=== PATIENT | female | born 1955 | race Caucasian/White ===

== ENCOUNTER 2021-07-08 07:54 | Inpatient (IN) | payer MEDICARE, OTHER ==
[~2021-07-08] VITALS: Ht 165.1 cm; Wt 49.9 kg
[~2021-07-08 07:54] MED LIST: CALC-896 PO
--- NOTE | 2021-07-08 08:03 | NUR ---
CROW FRM OUTSIDE HER HOME ACTING BIZZARE. NOTED SEIZURE LIKE ACTIVITY BY PARAMEDICS RESEARCH AND DEVELOPMENT TECHNICIAN. BG 146. THE PATIENT IS NOTED TO BE ALERT AND ORIENTED X1. IN ROOM AIR AND DENIES SOB. RESPIRATION REGULAR AND UNLABORED. DENIES PAIN. ATTACHED TO THE MONITOR. SITTER AT THE BEDSIDE. WILL CONTINUE TO MONITOR THE PATIENT.
[2021-07-08 08:22] LABS: BASOPHILS # (AUTO) 0.1 K/uL (0.0-0.2); BASOPHILS % (AUTO) 1.1 % (0.0-2.0); EOSINOPHILS % (AUTO) 0.9 % (0.0-6.0); HEMATOCRIT 36 % (33-45); HEMOGLOBIN 12.1 g/dL (11.5-14.8); LYMPHOCYTES # (AUTO) 1.8 K/uL (0.8-4.8); LYMPHOCYTES % (AUTO) 21.4 % (20.0-44.0); MEAN CORPUSCULAR HGB CONC 34 g/dl (31.0-36.0); MEAN CORPUSCULAR VOLUME 91 fL (82-100); MONOCYTES # (AUTO) 0.5 K/uL (0.1-1.30); MONOCYTES % (AUTO) 6.2 % (2.0-12.0); NEUTROPHILS % (AUTO) 70.4 % (43.0-81.0); PLATELET COUNT (AUTO) 218 K/uL (150-450); RED BLOOD CELL COUNT(AUTO) 3.91 MIL/uL (4.0-5.2); WHITE BLOOD COUNT (AUTO) 8.5 K/uL (4.3-11.0)
--- NOTE | 2021-07-08 08:32 | NUR ---
URINE COLLECTED AND SENT TO THE LAB
[2021-07-08 08:36] LABS: BILIRUBIN,URINE Negative (NEGATIVE); COLOR,URINE YELLOW (YELLOW); LEUKOCYTE ESTERASE ,URINE Negative (NEGATIVE); NITRITE, URINE Negative (NEGATIVE); PH,URINE 5.5 (5.0-8.0); PROTEIN,URINE 100 mg/dl (NEGATIVE); UGLUCOSE Negative (NEGATIVE); UROBILINOGEN,URINE 0.2 EU/dL (0.2)
[2021-07-08 08:45] LABS: ALANINE AMINOTRANSFERASE 18 U/L (12-78); ALBUMIN 3.6 g/dL (3.4-5.0); ALKALINE PHOSPHATASE 107 U/L (46-116); ASPARTATE AMINOTRANSFERASE 24 U/L (15-37); BILIRUBIN,DIRECT 0.2 mg/dL (0.0-0.2); BILIRUBIN,TOTAL 1.2 mg/dL (0.2-1.0); CALCIUM, SERUM 8.6 mg/dL (8.5-10.1); CARBON DIOXIDE 25 mmol/L (21-32); CHLORIDE 106 mmol/L (98-107); GLUCOSE 162 mg/dL (74-106); POTASSIUM 3.6 mmol/L (3.5-5.1); SODIUM SERUM 140 mmol/L (136-145); TOTAL PROTEIN, SERUM 6.8 g/dL (6.4-8.2); UREA NITROGEN, BLOOD 13 mg/dL (7-18)
[2021-07-08 08:47] LABS: ACETAMINOPHEN < 10 ug/ml (10-30); ALCOHOL, BLOOD < 3 mg/dL (0-0)
[2021-07-08 09:17] LABS: BACTERIA,URINE Few /HPF (None Seen); RBC,URINE 0-3 /HPF (0-2); SQUAMOUS EPITHELIAL CELL,UR Rare /HPF (None Seen); WBC,URINE 0-2 /HPF (0-3)
[2021-07-08] MEDS ORDERED: OLANZAPINE 5 MG TABLET ONE (11:29)
[2021-07-08] MEDS ORDERED: OLANZAPINE 5 MG TABLET PO ONE (11:30)
[2021-07-08] MEDS ORDERED: CLON1TAB12 PO (12:34)
--- NOTE | 2021-07-08 15:45 | NUR ---
NO AVAILABLE BEDS AT [facility]
--- NOTE | 2021-07-08 16:01 | NUR ---
218-1 AFTER 1814
--- NOTE | 2021-07-08 18:06 | NUR ---
REPORT GIVEN TO NURSE BHAKTI
--- NOTE | 2021-07-08 18:50 | NUR ---
THE PATIENT IS TRANSFERED TO GPS UNIT IN STABLE CONDITION AND PER POLICY.
[2021-07-08 19:55] VITALS: BP 115/64
[2021-07-08] MEDS ORDERED: TEMAZEPAM 7.5 MG CAPSULE PO PRN (20:00)
[2021-07-08] MEDS ORDERED: MAG HYDROX/AL HYDROX/SIMETH 30 ML UDC PO PRN ×2 (20:00)
[2021-07-08] MEDS ORDERED: BLOOD SUGAR DIAGNOSTIC 1 EACH STRIP IN ONE ×2 (20:00)
[2021-07-08] MEDS ORDERED: LORAZEPAM 0.5 MG TABLET PO PRN (20:00)
[2021-07-08] MEDS ORDERED: ACETAMINOPHEN 325 MG TABLET PO PRN ×2 (20:00)
[2021-07-08] MEDS ORDERED: MAGNESIUM HYDROXIDE 30 ML UDC PO PRN ×2 (20:00)
[2021-07-08 20:18] VITALS: BP 115/64
--- NOTE | 2021-07-08 20:33 | NUR ---
RN NOTE: FEVER PATIENT'S BODY TEMPERATURE NOTED TO BE 100.4 F, PATIENT IS SHIVERING AND RESTLESS. REMOVED EXTRA BLANKETS/CLOTHING/SOCKS. OFFERED PO FLUIDS TOLERATED. PRN TYLENOL 650 MG PO ADMINISTERED. WILL CONTINUE TO MONITOR CLOSELY FOR ANY CHANGE OF CONDITION.
--- NOTE | 2021-07-08 21:15 | NUR ---
RN NOTE PATIENT'S BODY TEMPERATURE IS 99.3F ORAL AT THIS TIME. TYLENOL HAS BEEN EFFECTIVE.
--- NOTE | 2021-07-08 21:25 | NUR ---
RN NOTE: PATIENT WAS ABLE TO PROVIDE HER FRIEND DERRICK'S NUMBER & PATIENT KEPT REQUESTING THE NURSE TO CALL DERRICK AND FIND OUT IF SHE IS ALIVE. NURSE CALLED [phone] (PHONE NUMBER PROVIDED BY THE PATIENT) PER PATIENT'S REQUEST AND SPOKE TO DERRICK. DERRICK STATED THAT SHE IS DOING FINE, SHE IS RELIEVED TO HEAR THAT BRENT IS AT THE HOSPITAL AND WILL CALL BRENT TOMORROW. GPS UNIT NUMBER & PATIENT'S ROOM NUMBER WAS PROVIDED TO DERRICK. DERRICK'S MESSAGE WAS GIVEN TO THE PATIENT WELL AND PATIENT DID CALM DOWN AFTER THAT.
--- NOTE | 2021-07-08 22:30 | NUR ---
RN NOTE PATIENT'S BODY TEMPERATURE IS 98.7F ORAL AT THIS TIME. OFFERED PO FLUIDS TOLERATED. WILL CONTINUE TO MONITOR THE PATIENT CLOSELY FOR ANY CHANGE OF CONDITION.
--- NOTE | 2021-07-08 22:45 | NUR ---
GPS TRAFFIC II MANAGER NOTE PATIENT ARRIVED TO GPS UNIT AT 1905 VIA GURNEY WITH NURSES FROM [facility], ER. PATIENT ADMITTED ON A 5150 HOLD FOR GD. PER 5150 HOLD, PATIENT IS DISORGANIZED, RAMBLING, HYPERVERBAL, DELUSIONAL AND RELIGIOUSLY PREOCCUPIED. PATIENT STATED," MY ROOMMATE IS , SHE IS A SAINT LIKE DANIAL URBINA. DANIAL IS PUNISHING ME, I NEED A MARBLE CLEANER TO COME AND BLESS ME. I DON'T KNOW WHAT HAD HAPPENED TO ME BUT I HAVE A SEIZURE." PATIENT IS CONFUSED, NO VIABLE PLAN FOR SELF CARE, BIZARRE, HISTORY OF SCHIZOAFFECTIVE DISORDER MIXED WITH PSYCHOTIC FEATURE. UPON FACE TO FACE ASSESSMENT, PATIENT IS A & O X 1-2, CONFUSED, FORGETFUL, RESTLESS, ANXIOUS, HYPERVERBAL, EMOTIONAL, CRYING, DISORGANIZED, PREOCCUPIED, DELUSIONAL, PARANOID, STATED," MY FRIEND DERRICK IS , SHE LAST NIGHT, I KEPT POUNDING ON HER ROOM DOOR, SHE DIDN'T OPEN. I AM A SINNER, DANIAL WILL PUNISH ME, IS DANIAL HERE ?" REASSURANCE PROVIDED. PATIENT IS A POOR HISTORIAN. PATIENT HAS NO S/S OF PAIN. PATIENT IS DISPLAYING NO S/S OF APPARENT DISTRESS OR SOB. ON ROOM AIR. PATIENT DENIES SI/HI AT THIS TIME. AMBULATORY, UNSTEADY GAIT AT TIMES. FALL RISK. NEEDS 1 PERSON ASSISTANCE AT ALL TIMES WITH ADL CARE & NEEDS FREQUENT REDIRECTIONS. PATIENT REFUSED TO SIGNS ANY PAPER WORK. PATIENT ADVISED OF HOLD AND PATIENT RIGHTS BOOKLET GIVEN. PATIENT IS UNDER THE PSYCHIATRIC CARE OF DR. GARIBAY AND THE MEDICAL CARE OF SUKUMAR MCKOY. PATIENT BELONGINGS WERE INVENTORIED AND CHECKED FOR CONTRABAND. ALL CONTRABAND REMOVED AND STORED IN PATIENT LOCKER. SKIN ASSESSMENT DONE, PHOTOS PLACED IN THE CHART. NO MEDS TO BE RECONCILED AT THIS TIME. UNABLE TO OBTAIN COVID AND PNEUMOCOCCAL VACCINE INFORMATION DUE TO PATIENT'S CURRENT MENTAL STATUS. PATIENT'S BODY TEMPERATURE WAS 100.4F UPON ADMISSION, PRN TYLENOL GIVEN & EFFECTIVE. PATIENT ORIENTATED TO ROOM, FLOOR, AND STAFF. PATIENT EDUCATED ON THE USE OF THE CALL FINLEY. PATIENT BED SIDE RAILS ARE UP X 2 FOR SAFETY. PATIENT BED IS LOCKED, LOW, BED ALARM ON FOR SAFETY. I WILL CONTINUE TO MONITOR THIS PATIENT Q 15 MIN WITH THE HELP OF STAFF TO MAINTAIN SAFETY.
--- NOTE | 2021-07-08 23:48 | NUR ---
RN NOTE PATIENT IS SLEEPING COMFORTABLY AT THIS TIME. NO ACUTE CHANGES NOTED. WILL CONTINUE TO MONITOR FOR ANY SAMANTHA.
[2021-07-09] MEDS: LORAZEPAM 0.5 MG TABLET PO PRN ×2 (06:41→22:11)
--- NOTE | 2021-07-09 06:42 | NUR ---
RN NOTE: ANXIETY PATIENT VERBALIZED FEELING RESTLESS, ANXIOUS & NOTED TO BE HYPERVERBAL/RESTLESS. PATIENT REQUESTED FOR MEDICINE TO HELP HER CALM DOWN. PRN ATIVAN 1 MG PO ADMINISTERED. WILL ENDORSE TO AM RN FOR CONTINUITY OF CARE.
[2021-07-09 07:13] LABS: CHOLESTEROL 159 mg/dL (<200); HDL CHOLESTEROL 57 mg/dL (40-60); LDL 89 mg/dL (0-99); TRIGLYCERIDES 81 mg/dL (30-150)
[2021-07-09 07:21] LABS: ALBUMIN 3.2 g/dL (3.4-5.0); BILIRUBIN,TOTAL 1.9 mg/dL (0.2-1.0); CALCIUM, SERUM 8.3 mg/dL (8.5-10.1); CREATININE 0.9 mg/dL (0.6-1.3); POTASSIUM 3.5 mmol/L (3.5-5.1); TOTAL PROTEIN, SERUM 6.2 g/dL (6.4-8.2)
[2021-07-09 08:00] VITALS: BP 119/62
[2021-07-09] MEDS: OLANZAPINE ZYDIS 5 MG TAB.RAPDIS PO SCH ×3 (09:00→22:00)
--- NOTE | 2021-07-09 11:45 | NUR ---
GPS/RN PT REFUSED ZYPREXA PO OFFERED X3. PT STATES : "I DO NOT NEED THAT, I ALREADY TOOK LORAZEPAM"
[2021-07-09 16:00] VITALS: BP 119/58
[2021-07-09 20:06] VITALS: BP 125/65
--- NOTE | 2021-07-09 22:11 | NUR ---
GPS RN NOTE - MEDS OFFERED OLANZAPINE X3 TO PT AND EDUCATED THE IMPORTANCE OF TAKING MED. PT STRONGLY REFUSED. PT REQUESTED FOR ATIVAN; ADMINISTERED ATIVAN 1MG ORDERED.
--- NOTE | 2021-07-10 06:29 | NUR ---
GPS RN NOTE PT A/OX1-2. TOLERATING R/A WELL. THROUGHOUT NIGHT, PT SLEPT WELL AND PT SLEEPING IN BED RIGHT NOW. DENIES PAIN OR DISCOMFORT. ALL NEEDS MET AT THIS TIME. SAFETY MEASURES IN PLACE. PT IN STABLE CONDITION, WILL ENDORSE PLAN OF CARE TO ONCOMING MORNING RN.
--- NOTE | 2021-07-10 07:30 | NUR ---
PT RECEIVED RESTING COMFORTABLE IN BED. NO S/S OR C/O PAIN OR DISTRESS NOTED. SIDE RAILS UP X2, CALL LIGHT LEFT WITHIN REACH. WILL CONTINUE PLAN OF CARE.
[2021-07-10 08:00] VITALS: BP 122/63
[2021-07-10] MEDS: OLANZAPINE ZYDIS 5 MG TAB.RAPDIS PO SCH ×2 (09:06→21:21)
--- NOTE | 2021-07-10 10:13 | NUR ---
BRIGITTE Initial Discharge Plan: Patient currently lives at home located at [address] [place] [address]. Patient lives with roommate Sana ([phone]). Patient would want to return back home upon discharge. BRIGITTE will work with the MD and treatment team to help coordinate appropriate discharge.
--- NOTE | 2021-07-10 10:26 | NUR ---
SW Note: Patient does not want staff to contact her roommate Sana ([phone]) and stated she is aware of pt's hospitalization and is aware that pt will return back home when stable.
--- NOTE | 2021-07-10 10:31 | NUR ---
Treatment Plan: Pt was very paranoid and anxious. Did not want to sign.
[2021-07-10 16:00] VITALS: BP 119/70
--- NOTE | 2021-07-10 18:38 | NUR ---
CHANGE OF SHIFT REPORT PT RESTING COMFORTABLY IN BED. NO S/S OR C/O PAIN OR DISTRESS NOTED. SIDE RAILS UP X2. PT KEPT CLEAN, DRY, AND COMFORTABLE. NO SIGNIFICANT CHANGES SINCE PREVIOUS SHIFT. WILL GIVE REPORT TO RICH DIAZ.
[2021-07-10 20:00] VITALS: BP 113/59
[2021-07-10 20:28] VITALS: BP 113/59
[2021-07-11] MEDS: TEMAZEPAM 7.5 MG CAPSULE PO PRN ×2 (00:57→22:49)
[2021-07-11] MEDS: LORAZEPAM 0.5 MG TABLET PO PRN (01:04)
--- NOTE | 2021-07-11 01:04 | NUR ---
GPS RN NOTE PATIENT C/O OF RESTLESSNESS/ANXIETY. PATIENT WAS GIVEN PRN 1MG OF ATIVAN PO AT THIS TIME. WILL CONTINUE TO MONITOR THE PATIENT.
--- NOTE | 2021-07-11 01:04 | NUR ---
GPS RN NOTE PATIENT C/O OF RESTLESSNESS/ANXIETY. PATIENT WAS GIVEN PRN 1MG OF ATIVAN PO AT THIS TIME. WILL CONTINUE TO MONITOR THE PATIENT. THEN, PATIENT REFUSED TO HAVE THE BED ALARM ON, THE RISKS HAVE BEE EXPLAINED TO THE PATIENT. WILL CONTINUE TO MONITOR THE PATIENT.
[2021-07-11 08:00] VITALS: BP 135/64
[2021-07-11] MEDS: OLANZAPINE ZYDIS 5 MG TAB.RAPDIS PO SCH ×2 (08:41→20:24)
[2021-07-11] MEDS: ENSURE ENLIVE 237 ML LIQUID (VANILLA) PO SCH ×2 (13:16→16:44)
--- NOTE | 2021-07-11 13:59 | NUR ---
PT OUT OF THE UNIT WITH GPS STAFF FOR BRAIN MRI W/O CONTRAST PROCEDURE.
--- NOTE | 2021-07-11 14:49 | NUR ---
PT BACK IN GPS UNIT FROM MRI PROCEDURE.
[2021-07-11 16:17] VITALS: BP 108/63
[2021-07-11 20:08] VITALS: BP 101/68
--- NOTE | 2021-07-12 07:28 | NUR ---
GPS RN NOTE RECEIVED PATIENT ASLEEP BUT AROUSABLE. PATIENT APPARENTLY CAN BE EASILY AGITATED. PROVIDED WITH CALM AND QUIET ENVIRONMENT. COMFORT MEASURES PROVIDED. WILL CONTINUE TO MONITOR PATIENT.
[2021-07-12 08:00] VITALS: BP 109/68
[2021-07-12] MEDS: ENSURE ENLIVE 237 ML LIQUID (VANILLA) PO SCH ×2 (09:00→16:51)
[2021-07-12] MEDS: OLANZAPINE ZYDIS 5 MG TAB.RAPDIS PO SCH ×2 (09:50→21:14)
[2021-07-12 16:00] VITALS: BP 144/65
[2021-07-12 20:00] VITALS: BP 127/87
[2021-07-13] MEDS: TEMAZEPAM 7.5 MG CAPSULE PO PRN ×2 (00:24→21:42)
--- NOTE | 2021-07-13 00:25 | NUR ---
RN NOTE:INSOMNIA PATIENT VERBALIZED INABILITY TO SLEEP AND REQUESTED TO TAKE SLEEPING MEDICINE. PRN RESTORIL 15 MG PO ADMINISTERED. WILL CONTINUE TO MONITOR.
[2021-07-13 08:00] VITALS: BP 127/78
[2021-07-13] MEDS: OLANZAPINE ZYDIS 5 MG TAB.RAPDIS PO SCH ×2 (08:43→21:15)
[2021-07-13] MEDS: ENSURE ENLIVE 237 ML LIQUID (VANILLA) PO SCH ×2 (08:48→17:09)
[2021-07-13 16:00] VITALS: BP 113/67
[2021-07-13 19:54] VITALS: BP 133/66
--- NOTE | 2021-07-13 21:42 | NUR ---
PS-RN NOTES: INSOMNIA PATIENT C/O INABILITY TO SLEEP. PRN RESTORIL 15MG PO GIVEN ORDERED. WILL CONTINUE TO MONITOR.
[2021-07-14 08:00] VITALS: BP 121/69
[2021-07-14] MEDS: OLANZAPINE ZYDIS 5 MG TAB.RAPDIS PO SCH ×2 (08:36→21:26)
[2021-07-14] MEDS: ENSURE ENLIVE 237 ML LIQUID (VANILLA) PO SCH ×2 (08:40→17:20)
--- NOTE | 2021-07-14 09:47 | NUR ---
BRIGITTE Individual Therapy: SW met with patient to conduct brief therapy. Patient appeared to be anxious and hyperverbal. She is focused on discharge and is not understanding of her mental illness. SW attempted to conduct brief therapy, however, was unable to because pt was anxious.
--- NOTE | 2021-07-14 11:18 | NUR ---
Court Hearing: Patient's court hearing for [id number] was today and it was upheld for GD.
[2021-07-14 16:00] VITALS: BP 113/66
[2021-07-14 19:57] VITALS: BP 131/61
[2021-07-14] MEDS: TEMAZEPAM 7.5 MG CAPSULE PO PRN (21:58)
--- NOTE | 2021-07-14 22:01 | NUR ---
GPS RN NOTES: Restoril 15mg given PO at 2158. Will continue to monitor.
--- NOTE | 2021-07-15 06:59 | NUR ---
GPS RN CLOSING NOTES: PATIENT IS CURRENTLY LAYING IN BED IN BED AWAKE. PATIENT SLEPT 5HRS THIS SHIFT. NO S/S OF DISTRESS. RESPIRATION EVEN AND UNLABORED WITH EQUAL RISE AND FALL OF THE CHEST, ON ROOM AIR. ALL PATIENT CARE NEEDS HAVE BEEN MET ANTICIPATED. WILL CONTINUE TO MONITOR AND AND ENDORSE TO AM SHIFT.
[2021-07-15 08:00] VITALS: BP 107/65
[2021-07-15] MEDS: OLANZAPINE ZYDIS 5 MG TAB.RAPDIS PO SCH ×2 (08:35→21:34)
[2021-07-15] MEDS: ENSURE ENLIVE 237 ML LIQUID (VANILLA) PO SCH ×2 (08:35→16:27)
[2021-07-15 16:00] VITALS: BP 128/82
[2021-07-15 20:00] VITALS: BP 108/70
[2021-07-15] MEDS: TEMAZEPAM 7.5 MG CAPSULE PO PRN (22:27)
--- NOTE | 2021-07-15 22:27 | NUR ---
GPS-RN NOTES: INSOMNIA PATIENT C/O INABILITY TO SLEEP. PRN RESTORIL 15MG PO GIVEN ORDERED. WILL CONTINUE TO MONITOR.
[2021-07-16 08:00] VITALS: BP 117/66
[2021-07-16] MEDS: ENSURE ENLIVE 237 ML LIQUID (VANILLA) PO SCH ×2 (08:15→16:03)
[2021-07-16] MEDS: OLANZAPINE ZYDIS 5 MG TAB.RAPDIS PO SCH ×2 (08:15→21:05)
[2021-07-16 16:00] VITALS: BP 119/67
[2021-07-16 19:37] VITALS: BP 121/66
[2021-07-16] MEDS: TEMAZEPAM 7.5 MG CAPSULE PO PRN (21:42)
--- NOTE | 2021-07-16 21:42 | NUR ---
GPS-RN NOTES: INSOMNIA PATIENT C/O INABILITY TO SLEEP. PRN RESTORIL 15MG PO GIVEN ORDERED. WILL CONTINUE TO MONITOR.
[2021-07-17 08:00] VITALS: BP 127/66
[2021-07-17] MEDS: ENSURE ENLIVE 237 ML LIQUID (VANILLA) PO SCH (08:27)
[2021-07-17] MEDS: OLANZAPINE ZYDIS 5 MG TAB.RAPDIS PO SCH (08:28)
--- NOTE | 2021-07-17 12:56 | NUR ---
SW Discharge Note: [place] [address] [place] [address]. Patient will be provided with taxi transportation at 12:40PM. Patient lives with roommate Sana ([phone]). Patient is alert and oriented x3, and is happy to be going back home. Patient denies suicidal or homicidal ideation. Patient denies visual/auditory hallucinations. Patient referred to [facility] for primary doctor located at [address], [address], [place] [address] ([phone]). Patient will follow up with (Psychiatrist) Dr. Pfeiffer located at [address], [place] [address]; ([phone]) on August 07 at 4PM. Patient presents with euthymic mood and congruent affect.
--- NOTE | 2021-07-17 12:58 | NUR ---
[place] at [address] [place] [address]. Provided with taxi transportation at 12:40PM. Patient is alert and oriented x3, and is happy to be going back home. Patient denies suicidal or homicidal ideation. Patient denies visual/auditory hallucinations. Patient referred to [facility] for primary doctor located at [address] [facility], [address], [place] [address] ([phone]). Patient will follow up with (Psychiatrist) Dr. Pfeiffer located at [address], [place] [address]; ([phone]) on August 07 at 4PM. Patient presents with euthymic mood and congruent affect. Exit care (After Care) copies given, reviewed and signed. Medication prescriptions given. Skin/wound pics taken. All valuables and belongings returned. Pt escorted to main lobby by GPS staff.
== END 2021-07-17 12:40 | disposition home or self-care (01) | DRG 885 ==
LOC: ER 07:58 → GPS 16:21
PROVIDERS: ADMIT Psychiatry & Neurology Psychiatry; ATTEND Family Medicine
DX: F25.9 Schizoaffective disorder, unspecified (principal); E44.1 Mild protein-calorie malnutrition; F23 Brief psychotic disorder; F41.9 Anxiety disorder, unspecified; I10 Essential (primary) hypertension; M19.90 Unspecified osteoarthritis, unspecified site; Z20.822 Contact with and (suspected) exposure to COVID-19; Z79.899 Other long term (current) drug therapy; F29 Unspecified psychosis not due to a substance or known physiological condition; K58.9 Irritable bowel syndrome, unspecified; R56.9 Unspecified convulsions; Z91.14 Patient's other noncompliance with medication regimen; Z73.6 Limitation of activities due to disability
CPT/HCPCS: 36415; 70551-TC; 80048-TC; 80053-TC; 80061-TC; 80076-TC; 81001; 82962-TC; 84443-TC; 85025-TC; 87081-TC; 95819-TC; 97116-TC; 97530-TC; C9803; G0480

== ENCOUNTER 2023-12-04 13:08 | Inpatient (IN) | payer MEDICARE, OTHER ==
[~2023-12-04] VITALS: Ht 162.6 cm; Wt 43.1 kg
[~2023-12-04 13:08] MED LIST changes: -CALC-896 PO; +CLON1TAB12 PO
[2023-12-04 13:38] LABS: BASOPHILS # (AUTO) 0.1 K/uL (0.0-0.2); BASOPHILS % (AUTO) 1.5 % (0.0-2.0); EOSINOPHILS # (AUTO) 0.1 K/uL (0.0-0.7); EOSINOPHILS % (AUTO) 0.8 % (0.0-6.0); HEMATOCRIT 38 % (33-45); HEMOGLOBIN 12.7 g/dL (11.5-14.8); LYMPHOCYTES # (AUTO) 1.5 K/uL (0.8-4.8); LYMPHOCYTES % (AUTO) 20.6 % (20.0-44.0); MEAN CORPUSCULAR HEMOGLOBIN 31 PG (26.0-33.0); MEAN CORPUSCULAR HGB CONC 34 g/dl (31.0-36.0); MEAN CORPUSCULAR VOLUME 91 fL (82-100); MONOCYTES # (AUTO) 0.4 K/uL (0.1-1.30); MONOCYTES % (AUTO) 6.3 % (2.0-12.0); NEUTROPHILS % (AUTO) 70.8 % (43.0-81.0); PLATELET COUNT (AUTO) 232 K/uL (150-450); RED BLOOD CELL COUNT(AUTO) 4.14 MIL/uL (4.0-5.2); RED CELL DISTRIBUTION WIDTH 14.1 % (11.5-15.0); WHITE BLOOD COUNT (AUTO) 7.1 K/uL (4.3-11.0)
[2023-12-04 14:08] LABS: CALCIUM, SERUM 9.7 mg/dL (8.5-10.1); CARBON DIOXIDE 25 mmol/L (21-32); CHLORIDE 105 mmol/L (98-107); CREATININE 0.8 mg/dL (0.6-1.3); GLUCOSE 121 mg/dL (74-106); POTASSIUM 3.5 mmol/L (3.5-5.1); SODIUM SERUM 142 mmol/L (136-145); UREA NITROGEN, BLOOD 13 mg/dL (7-18)
[2023-12-04 14:17] LABS: ALANINE AMINOTRANSFERASE 14 U/L (12-78); ALBUMIN 4.1 g/dL (3.4-5.0); ALCOHOL, BLOOD < 3 mg/dL (0-10); ALKALINE PHOSPHATASE 138 U/L (46-116); ASPARTATE AMINOTRANSFERASE 24 U/L (15-37); BILIRUBIN,DIRECT 0.2 mg/dL (0.0-0.2); BILIRUBIN,TOTAL 1.4 mg/dL (0.2-1.0); TOTAL PROTEIN, SERUM 7.6 g/dL (6.4-8.2)
[2023-12-04 14:19] LABS: ACETAMINOPHEN <10 ug/ml (10-30)
[2023-12-04 14:20] LABS: SALICYLATE < 3.0 mg/dL (2.8-20.0)
[2023-12-04] MEDS ORDERED: OLANZAPINE 10 MG VIAL IM ONE (15:12)
[2023-12-04] MEDS ORDERED: LORAZEPAM 1 MG TABLET ONE (15:12)
[2023-12-04] MEDS: LORAZEPAM 1 MG TABLET PO ONE (15:13)
[2023-12-04] MEDS: OLANZAPINE 10 MG VIAL IM ONE (15:15)
[2023-12-04 15:57] LABS: APPEARANCE,URINE Clear (CLEAR); BILIRUBIN,URINE SMALL (NEGATIVE); BLOOD, URINE Negative Ery/uL (NEGATIVE); COLOR,URINE YELLOW (YELLOW); KETONES,URINE 15 mg/dL (NEGATIVE); LEUKOCYTE ESTERASE ,URINE Negative (NEGATIVE); NITRITE, URINE Negative (NEGATIVE); PROTEIN,URINE 100 mg/dl (NEGATIVE); UGLUCOSE Negative (NEGATIVE); UROBILINOGEN,URINE 0.2 EU/dL (0.2)
[2023-12-04 16:00] LABS: AMPHETAMINE, URINE NEGATIVE (NEGATIVE); BARBITURATE, URINE NEGATIVE (NEGATIVE); BENZODIAZEPINE, URINE NEGATIVE (NEGATIVE); CANNABINOID, URINE NEGATIVE (NEGATIVE); COCCAINE, URINE NEGATIVE (NEGATIVE); OPIATE, URINE NEGATIVE (NEGATIVE); PHENCYCLIDINE SCREEN,URINE NEGATIVE (NEGATIVE)
[2023-12-04 16:24] LABS: ADD URINE CULTURE NO; BACTERIA,URINE Few /HPF (None Seen); MUCUS,URINE Few /LPF (None Seen); RBC,URINE NONE SEEN /HPF (0-2); WBC,URINE NONE SEEN /HPF (0-3)
[2023-12-04] MEDS ORDERED: MAGNESIUM HYDROXIDE 30 ML UDC PO PRN (18:00)
[2023-12-04] MEDS ORDERED: LORAZEPAM 1 MG TABLET PO PRN (18:30)
[2023-12-04] MEDS: BLOOD SUGAR DIAGNOSTIC 1 EACH STRIP IN ONE (18:41)
[2023-12-04 18:59] VITALS: BP 130/93; TEMP 98.1; O2SAT 98
[2023-12-04 20:33] VITALS: BP 117/89; TEMP 98; O2SAT 97
[2023-12-05] MEDS: ZOLPIDEM TARTRATE 5 MG TABLET PO PRN (01:21)
[2023-12-05 07:57] LABS: CHOLESTEROL 169 mg/dL (<200); HDL CHOLESTEROL 67 mg/dL (40-60); LDL 88 mg/dL (0-99); TRIGLYCERIDES 42 mg/dL (30-150)
[2023-12-05 08:00] VITALS: BP 129/70; TEMP 97.7; O2SAT 97
[2023-12-05 08:38] LABS: ALBUMIN 3.3 g/dL (3.4-5.0); BILIRUBIN,TOTAL 1.3 mg/dL (0.2-1.0); CALCIUM, SERUM 8.9 mg/dL (8.5-10.1); CREATININE 0.9 mg/dL (0.6-1.3); POTASSIUM 4.2 mmol/L (3.5-5.1); TOTAL PROTEIN, SERUM 6.7 g/dL (6.4-8.2)
[2023-12-05 10:57] LABS: THYROID STIMULATING HORMONE 2.273 uIU/mL (0.358-3.74)
[2023-12-05] MEDS: ARIPIPRAZOLE 2 MG TABLET PO SCH (11:42)
[2023-12-05] MEDS: LITHIUM CARBONATE (300 MG CAP) 300 MG CAPSULE PO SCH (11:42)
[2023-12-05 16:00] VITALS: BP 146/64; TEMP 97.7; O2SAT 96
[2023-12-05 20:00] VITALS: BP 132/74; TEMP 97.6; O2SAT 98
[2023-12-06] MEDS: clonazePAM 0.5 MG TABLET PO PRN (00:24)
[2023-12-06 08:00] VITALS: BP 137/88; TEMP 97.7; O2SAT 98
[2023-12-06 16:00] VITALS: BP 122/69; TEMP 97.9; O2SAT 97
[2023-12-06] MEDS: ENSURE ENLIVE 237 ML LIQUID (VANILLA) PO SCH (17:17)
[2023-12-07 08:00] VITALS: BP 118/63; TEMP 98; O2SAT 97
[2023-12-07 16:00] VITALS: BP 121/69; TEMP 98; O2SAT 98
[2023-12-07] MEDS: MAG HYDROX/AL HYDROX/SIMETH 30 ML UDC PO PRN (16:39)
[2023-12-07 20:00] VITALS: BP 126/81; TEMP 98.3; O2SAT 95
[2023-12-08 08:00] VITALS: BP 127/67; TEMP 98.1; O2SAT 96
[2023-12-08 16:00] VITALS: BP 119/63; TEMP 97.4; O2SAT 95
[2023-12-08 20:25] VITALS: BP 113/75; TEMP 98; O2SAT 99
[2023-12-09 08:00] VITALS: BP 125/72; TEMP 98.6; O2SAT 96
[2023-12-09 16:00] VITALS: BP 136/71; TEMP 98.4; O2SAT 96
[2023-12-09 20:36] VITALS: BP 123/69; TEMP 98.3; O2SAT 96
[2023-12-09] MEDS: ACETAMINOPHEN 325 MG TABLET PO PRN (21:31)
[2023-12-10 08:00] VITALS: BP 117/80; TEMP 98.7; O2SAT 98
[2023-12-10] MEDS: ARIPIPRAZOLE 2 MG TABLET PO SCH (08:17)
[2023-12-10 16:00] VITALS: BP 124/68; TEMP 97.7; O2SAT 97
[2023-12-10 20:43] VITALS: BP 100/60; TEMP 98.1; O2SAT 99
[2023-12-10] MEDS: hydrOXYzine PAMOATE 25 MG CAPSULE PO PRN (21:11)
[2023-12-11 08:00] VITALS: BP 114/52; TEMP 98.7; O2SAT 96
[2023-12-11 16:00] VITALS: BP 122/73; TEMP 98.7; O2SAT 98
[2023-12-11 20:00] VITALS: BP 115/77; TEMP 98; O2SAT 96
[2023-12-12 08:00] VITALS: BP 114/75; TEMP 98.1; O2SAT 95
[2023-12-12 16:00] VITALS: BP 132/68; TEMP 97.8; O2SAT 97
[2023-12-12 20:00] VITALS: BP 137/82; TEMP 97.9; O2SAT 98
[2023-12-13 08:00] VITALS: BP 139/86; TEMP 98; O2SAT 98
== END 2023-12-13 13:00 | disposition home or self-care (01) | DRG 885 ==
LOC: ER 13:10 → GPS 16:31
PROVIDERS: ADMIT Psychiatry & Neurology Psychiatry
DX: F31.2 Bipolar disorder, current episode manic severe with psychotic features (principal); E43 Unspecified severe protein-calorie malnutrition; Z68.1 Body mass index [BMI] 19.9 or less, adult; R64 Cachexia; K58.9 Irritable bowel syndrome, unspecified; Z78.1 Physical restraint status; F41.9 Anxiety disorder, unspecified; Z91.148 Patient's other noncompliance with medication regimen for other reason
CPT/HCPCS: 36415; 80048-TC; 80053-TC; 80061-TC; 80076-TC; 81001; 82962-TC; 84439-TC; 84443-TC; 84481; 85025-TC; G0480; J3490; Q0177